=== PATIENT | male | born 1955 | race Caucasian/White ===

== ENCOUNTER 2019-04-02 17:06 | Emergency (ER) | payer MEDICAID ==
[~2019-04-02] VITALS: Ht 180.3 cm; Wt 75.0 kg
[2019-04-02 17:30] VITALS: Ht 180.3 cm; Wt 75.0 kg
[2019-04-02] MEDS ORDERED: BRILINTA90 MG PO (17:32)
[2019-04-02] MEDS ORDERED: NITROQUICK0.4 MG SL (17:33)
[2019-04-02] MEDS ORDERED: FOLIC ACID1 MG PO (17:33)
[2019-04-02] MEDS ORDERED: KLONOPIN1 MG PO (17:33)
[2019-04-02] MEDS ORDERED: EC-NAPROSYN500 MG PO (17:33)
[2019-04-02] MEDS ORDERED: METHOTREXATE2.5 MG PO (17:34)
[2019-04-02] MEDS ORDERED: PREDNISONE2.5 MG PO (17:34)
[2019-04-02] MEDS ORDERED: HYDROCODON-ACE1 EA10 PO (17:36)
[2019-04-02] MEDS ORDERED: GLUCOPHAGE500 MG PO (17:37)
[2019-04-02] MEDS ORDERED: CELEXA40 MG PO (17:37)
[2019-04-02] MEDS ORDERED: ENBREL (17:39)
[2019-04-02 17:49] LABS: BASOPHILS 0.8 % (0-2); EOSINOPHILS 4.2 % (0-7); HEMATOCRIT 40.1 % (42.0-54.0); HEMOGLOBIN 13.9 g/dL (13.5-17.5); IMMATURE GRANULOCYTES 0.1 % (0-5); LYMPHOCYTES 33.4 % (15-50); MCH 33.3 pg (26.0-34.0); MCHC 34.7 g/dL (31.0-37.0); MCV 96.2 fL (80.0-100.0); MEAN PLATELET VOLUME 9.9 fL (7.4-10.4); MONOCYTES 8.3 % (2-11); NEUTROPHILS 53.2 % (40-80); PLATELET COUNT 230 10x3/uL (130-400); RBC 4.17 10x6/uL (4.20-6.10); RDW 14.3 % (11.5-14.5); WBC 7.1 10x3/uL (4.8-10.8)
[2019-04-02 18:07] LABS: CALC OSMOLALITY 276 mosm/kg (275-300); CHLORIDE - SERUM 103 mmol/L (98-107); GLUCOSE 108 mg/dL (74-106); POTASSIUM - SERUM 3.8 mmol/L (3.5-5.1); SODIUM 137 mmol/L (136-145); UREA NITROGEN 19 mg/dL (7-18); eGFR NON AFRICAN AMERICAN 81 mL/min (90-120)
[2019-04-02 18:17] LABS: ALBUMIN 3.4 g/dL (3.4-5.0); ALKALINE PHOSPHATASE 66 U/L (46-116); ALT (SGPT) 40 U/L (10-68); BILIRUBIN - TOTAL 0.27 mg/dL (0.2-1.3); CKMB 1.2 U/L (0.0-3.6); CREATINE KINASE 110 UL (21-232); MAGNESIUM - SERUM 1.6 mg/dL (1.8-2.4); PROTEIN - SERUM 7.8 g/dL (6.4-8.2); TROPONIN-I < 0.017 ng/mL (0.000-0.060)
[2019-04-02 21:00] VITALS: BP 141/81
== END 2019-04-02 21:00 | disposition home or self-care (01) ==
LOC: D.ER 17:06
PROVIDERS: Family Medicine
DX: R07.89 Other chest pain (principal); R91.8 Other nonspecific abnormal finding of lung field; E11.9 Type 2 diabetes mellitus without complications; Z79.84 Long term (current) use of oral hypoglycemic drugs; I25.10 Atherosclerotic heart disease of native coronary artery without angina pectoris